=== PATIENT | female | born 1935 ===

== ENCOUNTER 2019-03-08 12:10 | Outpatient (CLI) | payer OTHER ==
[~2019-03-08 12:10] MED LIST: AVALIDE 150-12.1 TA1 PO; GLUCOVANCE; NEXIUM; NORVASC5 MG PO; OMEPRAZOLE40 MG; SYNTHROID100 MCG PO
== END 2019-03-08 12:18 | disposition home or self-care (01) ==
LOC: RAD 12:10
DX: J84.89 Other specified interstitial pulmonary diseases (principal)

== ENCOUNTER 2019-03-13 23:40 | Emergency (ER) | payer OTHER ==
[~2019-03-13] VITALS: Ht 152.4 cm; Wt 61.2 kg
[2019-03-14] MEDS ORDERED: MICARDIS40 MG
== END 2019-03-14 06:39 | disposition home or self-care (01) ==
LOC: ER 23:40
DX: I16.0 Hypertensive urgency (principal); I10 Essential (primary) hypertension; R45.1 Restlessness and agitation